=== PATIENT | female | born 1995 | race Caucasian/White ===

== ENCOUNTER 2021-01-24 09:57 | Day surgery (SDC) | payer BC, OTHER ==
--- NOTE | 2021-01-23 15:00 | HP ---
DATE OF SURGERY: 01/24/2021 HISTORY OF PRESENT ILLNESS: The patient is a 25 year-old who presents with complaints of some bright red rectal bleeding, appears the patient may have a fissure at this time. The patient has not had any colonoscopy. The patient does not have any family history of colon cancer. PAST MEDICAL HISTORY: None reported. PAST SURGICAL HISTORY: section. Tubal ligation. ALLERGIES: NKDA. MEDICATIONS: None reported. FAMILY HISTORY: Diabetes. SOCIAL HISTORY: None. REVIEW OF SYSTEMS: CONSTITUTIONAL: Denies fever or chills. CHEST: Denies shortness of breath. CVS: Denies chest pain. ABDOMEN: Denies abdominal pain, nausea, vomiting, diarrhea or constipation. Reports rectal bleeding. PHYSICAL EXAMINATION: GENERAL: No acute distress. CHEST: Nonlabored. No shortness of breath. CVS: Regular rate and rhythm. ABDOMEN: Soft, nontender. IMPRESSION: Rectal bleeding. PLAN: Colonoscopy with Dr. Mandeep Navarro. As dictated by Amie Reed NP.
[2021-01-24] MEDS ORDERED: Lactated Ringers 1,000 ML IV ONE (10:15)
[2021-01-24] MEDS ORDERED: Lactated Ringers 1,000 ML IV SCH (10:30)
[2021-01-24] MEDS ORDERED: DIPRIVAN 200 MG/20 ML IV ONE ×3 (11:26→12:31)
--- NOTE | 2021-01-24 13:04 | OP ---
SURGERY DATE/TIME: 01/24/2021 1219 PREOPERATIVE DIAGNOSIS: Blood per rectum. POSTOPERATIVE DIAGNOSIS: The patient has a very nonspecific colitis of the left upper colon. PROCEDURES: 1) Colonoscopy complete to cecum. 2) Cold biopsy of the splenic flexure area and cold biopsy of the rectum. SURGEON: Mandeep Navarro M.D. ANESTHESIA: MAC. COMPLICATIONS: None. CONDITION: Stable. INDICATION: A patient requiring evaluation. DESCRIPTION OF PROCEDURE: Taken to endoscopy. MAC sedation provided. Anal digital examination satisfactory. Scope introduced. There were no visible anorectal pathology. She had scant hemorrhoidal tissue and she had scant irritation of the anus. Basically a young, healthy normal anorectal canal. Scope advanced to the cecum. Base of the cecum, ileocecal valve, appendiceal orifice normal. On circumferential withdrawal ascending, hepatic, transverse, in the splenic flexure/proximal descending there were some slight splotches of irritation and mucous. Multi [employer] cold biopsy not very impressive but certainly real. I think this was the source of her bleeding probably a few weeks ago. Sigmoid, rectum, anus as noted. IMPRESSION: Very mild, resolving colitis nonspecific. Two pharmaceutical service representative biopsies obtained one of colitis and one of the rectum. PLAN: She will come back to the office. No medications were started today.
[2021-01-24 15:41] VITALS: BP 141/91; PULSE 90; O2SAT 94
== END 2021-01-24 13:45 | disposition home or self-care (01) ==
LOC: SDC 09:57
PROVIDERS: ATTEND Surgery
DX: K52.9 Noninfective gastroenteritis and colitis, unspecified (principal)
CPT/HCPCS: 88305; J2704